=== PATIENT | female | born 1955 | race Hispanic/Latino ===

== ENCOUNTER 2018-08-13 15:04 | Outpatient (CLI) | payer BC, MEDICARE | END 2018-08-13 15:05 | disposition home or self-care (01) | LOC: LABHHL 15:04 | PROVIDERS: ATTEND Surgery | DX: N81.10 Cystocele, unspecified (principal) | CPT/HCPCS: 88112 ==

== ENCOUNTER 2018-08-24 09:19 | Outpatient (CLI) | payer BC, MEDICARE ==
--- NOTE | 2018-08-24 10:37 | Ultrasound Report ---
ULTRASOUND GUIDED NEEDLE CORE BIOPSY LEFT BREAST WITH CLIP PLACEMENT: 08/24/18 09:00:00 CLINICAL: Shadowing mass at 2 o'clock 5-6 cm from the nipple. COMPARISON :01/16/17 left breast ultrasound from [facility] FINDINGS: The procedure was explained to the patient and informed consent was obtained. Ultrasound demonstrated an irregular shadowing echogenic mass at 2 o'clock 6 cm from nipple measuring approximately 1.2 x 0.8 cm. It correlates with the previously identified mass.. The breast with marked with a felt tip marker and a time out was called. The skin was prepped with Betadine and anesthetized with 1% lidocaine. Needle core biopsy was performed through a tiny dermatotomy using ultrasound guidance, 2% lidocaine with epinephrine for deep anesthesia and a 14-gauge Achieve biopsy device. 4 cores were obtained and placed in formalin. A clip was deployed within the mass. The patient tolerated the procedure well and there were no apparent complications. Hemostasis was achieved with minimal pressure and a sterile dressing was applied. A two view mammogram demonstrated satisfactory deployment of the clip. She left the department in good condition and was given instructions for wound care and followup. IMPRESSION: Uncomplicated ultrasound guided needle core biopsy with clip placement left breast.
--- NOTE | 2018-08-24 10:39 | Mammography Report ---
LEFT DIGITAL DIAGNOSTIC MAMMOGRAM: 08/24/18 09:19:00 CLINICAL: For clip placement immediately status post ultrasound biopsy. COMPARISON:08/13/18 FINDINGS: A biopsy clip is now identified at 2 o'clock and is concordant with the lesion identified ultrasound. IMPRESSION: Concordant clip placement status post ultrasound biopsy. BI-RADS CATEGORY: 4--Suspicious Pathology pending.
== END 2018-08-24 09:20 | disposition home or self-care (01) ==
LOC: SPVWC 09:19
PROVIDERS: ATTEND Surgery
DX: D24.2 Benign neoplasm of left breast (principal)
CPT/HCPCS: 88305

== ENCOUNTER 2020-03-01 10:03 | Outpatient (CLI) | payer BC, MEDICARE ==
--- NOTE | 2020-03-02 11:56 | Ultrasound Report ---
ULTRASOUND BREAST LEFT COMPLETE, 03/01/2020 CLINICAL INFORMATION / INDICATION: Follow-up benign biopsy. TECHNIQUE: Complete sonographic evaluation of all 4 quadrants and retroareolar region was performed. COMPARISON: Left breast ultrasound biopsy images 08/24/2018, bilateral mammogram 02/07/2020 FINDINGS: No abnormalities are seen. This includes the 2:00 area of previous biopsy. IMPRESSION: No sonographic evidence of malignancy. Follow up recommendation: Routine yearly BI-RADS Category 1: Negative. A normal or "negative" report should not preclude biopsy or follow-up of a clinically suspicious find ing. Signer Name: Madhu Holder MD Signed: 03/02/2020 11:51 AM Workstation Name: [id number]
== END 2020-03-01 10:04 | disposition home or self-care (01) ==
LOC: SPVWC 10:03
PROVIDERS: ATTEND Surgery
DX: R92.8 Other abnormal and inconclusive findings on diagnostic imaging of breast (principal)